=== PATIENT | male | born 1995 | race Caucasian/White ===

== ENCOUNTER 2018-01-30 19:54 | Emergency (ER) | payer BC ==
[2018-01-30 20:05] VITALS: BP 145/84; PULSE 128; RESP 18; TEMP 101.5
[2018-01-30] MEDS ORDERED: IBUPROFEN 600 MG TAB PO STA (20:23)
[2018-01-30] MEDS ORDERED: ACETAMINOPHEN TAB 500 MG TAB PO STA (20:23)
--- NOTE | 2018-01-30 20:25 | ED ---
General Adult HPI - General Chief complaint: Upper Respiratory Infection Stated complaint: poss bronchitis/poss flu Time Seen by Provider: 01/30/18 20:13 Source: patient, RN notes reviewed Mode of arrival: ambulatory Limitations: no limitations - History of Present Illness Initial comments: 22-year-old male presents to the emergency Department chief complaint of fever. He states he had fevers throat pain and body aches. His roommate was diagnosed with influenza B. He denies any productive cough. He denies any nausea or vomiting. He took Tylenol this morning. His ears due to his continued symptoms so he thought that he should be seen. Patient denies any recent shortness of breath, chest pain, back pain, abdominal pain, nausea vomiting, numbness or tingling, dysuria or hematuria, constipation or diarrhea, headaches or visual changes, or any other current symptoms. - Related Data Previous Rx's Medication Instructions Recorded Oseltamivir [Tamiflu] 75 mg PO Q12HR #10 cap 01/30/18 Allergies Allergy/AdvReac Type Severity Reaction Status Date / Time No Known Allergies Allergy Verified 01/30/18 20:03 Review of Systems ROS Statement: Those systems with pertinent positive or pertinent negative responses have been documented in the HPI. ROS Other: All systems not noted in ROS Statement are negative. Past Medical History Past Medical History: No Reported History Additional Past Medical History / Comment(s): spontaneous pneumo in right lung History of Any Multi-Drug Resistant Organisms: None Reported Past Surgical History: No Surgical Hx Reported Past Psychological History: No Psychological Hx Reported Smoking Status: Current every day smoker Past Alcohol Use History: Occasional Past Drug Use History: Marijuana General Exam - General Exam Comments Initial Comments: General exam: Alert, active, comfortable in no apparent distress Head: Normocephalic Eyes: Normal reaction of pupils, equal size, normal range of extraocular motion Ears: normal external ear canals, pink tympanic membranes with normal cone of light Nose: clear with pink turbinates Throat: Erythema Neck: no masses, no nuchal rigidity Chest: no chest wall deformity Lungs: equal air entry with no crackles or wheeze CVS: S1 and S2 normal with no audible mumurs, regular rhythm Abdomen: no hepatosplenomegaly, normal bowel sounds, no guarding or rigidity Spine: no scoliosis or deformity Skin: no rashes Neurological: No focal deficits, tone is normal in all 4 extremities Limitations: no limitations Course Vital Signs 01/30/18 20:00 Temperature 101.5 F H Pulse Rate 128 H Respiratory 18 Rate Blood Pressure 145/84 O2 Sat by Pulse 99 Oximetry Medical Decision Making - Medical Decision Making 22-year-old male presents to the emergency department with a chief complaint of fever and sore throat. At this time patient is influenza B-positive. We will start him on Tamiflu. We discussed follow-up return parameters all questions. Patient stated that he understood and he is in agreement this plan. All questions have been answered. He'll be discharged. - Lab Data Lab Results 01/30/18 01/30/18 Range/Units 20:07 20:25 Influenza Type A RNA Not Detected (Not Detectd) Influenza Type B (PCR) Detected H (Not Detectd) Group A Strep Rapid Negative (Negative) - Radiology Data Radiology results: report reviewed, image reviewed Disposition Clinical Impression: Influenza B Disposition: HOME SELF-CARE Condition: Stable Instructions: Influenza in Children (ED) Additional Instructions: Please use medication as discussed. Please follow up with family doctor if symptoms have not improved over the next two days. Please return to the emergency room if your symptoms increase or worsen or for any other concerns. Prescriptions: Oseltamivir [Tamiflu] 75 mg PO Q12HR #10 cap Referrals: Matias Bustos MD [REFERRING] - 1-2 days Time of Disposition: 20:43
== END 2018-01-30 20:51 | disposition home or self-care (01) ==
LOC: EC 19:54
DX: J10.1 Influenza due to other identified influenza virus with other respiratory manifestations (principal); F17.200 Nicotine dependence, unspecified, uncomplicated
CPT/HCPCS: 87081; 87430; 87502; 99283

== ENCOUNTER 2018-04-15 12:47 | Emergency (ER) | payer BC ==
[2018-04-15 12:57] VITALS: BP 133/70; PULSE 103; RESP 20; TEMP 98.5
--- NOTE | 2018-04-15 13:15 | ED ---
General Adult HPI - General Chief complaint: Extremity Injury, Upper Stated complaint: facial rash/ left palm injury Time Seen by Provider: 04/15/18 12:58 Source: patient, RN notes reviewed Mode of arrival: ambulatory Limitations: no limitations - History of Present Illness Initial comments: 22-year-old male presents to the emergency department for a chief complaint of hand pain 2 hours. Patient was long boarding when he fell and scraped his left hand. Patient denies pain in the L hand other than the abrasion. Patient denies pain anywhere else. Patient denies pain in the other hand or lower extremities bilaterally. Patient denies hitting his head or losing consciousness. Patient also complains of mild impetigo that started last night. Patient states he gets this every year around this time and just needs a prescription for Bactroban. Patient denies a history of MRSA. Patient denies any fevers or chills. Patient last had a tetanus shot about 3 years ago. Patient has no other complaints at this time including shortness of breath , chest pain, abdominal pain, nausea or vomiting, headache, or visual changes. - Related Data Previous Rx's Medication Instructions Recorded Oseltamivir [Tamiflu] 75 mg PO Q12HR #10 cap 01/30/18 Bacitracin Oint 1 applic TOPICAL Q8H 5 Days gm 04/15/18 Cephalexin [Keflex] 500 mg PO Q12HR #20 cap 04/15/18 Allergies Allergy/AdvReac Type Severity Reaction Status Date / Time No Known Allergies Allergy Verified 04/15/18 12:57 Review of Systems ROS Statement: Those systems with pertinent positive or pertinent negative responses have been documented in the HPI. ROS Other: All systems not noted in ROS Statement are negative. Past Medical History Past Medical History: No Reported History Additional Past Medical History / Comment(s): spontaneous pneumo in right lung History of Any Multi-Drug Resistant Organisms: None Reported Past Surgical History: No Surgical Hx Reported Past Psychological History: No Psychological Hx Reported Smoking Status: Current every day smoker Past Alcohol Use History: Occasional Past Drug Use History: Marijuana General Exam Limitations: no limitations General appearance: alert Head exam: Present: atraumatic, normocephalic, normal inspection Respiratory exam: Present: normal lung sounds bilaterally. Absent: respiratory distress, wheezes, rales, rhonchi, stridor Cardiovascular Exam: Present: regular rate, normal rhythm, normal heart sounds. Absent: systolic murmur, diastolic murmur, rubs, gallop, clicks Extremities exam: Present: full ROM (Full range of motion of the left wrist and hand and digits.), tenderness (Tenderness to the abrasion. No tenderness in the rest of the hand. No tenderness in the scaphoid area.), normal capillary refill (Refill less than 2 seconds and radial pulse 2+ in upper extremities bilaterally), other (There is a 3 cm x 3 cm abrasion on the palmar aspect of the left hand. No signs of infection. No cellulitic changes, spreading redness , streaking redness, or drainage from the area.). Absent: pedal edema, joint swelling (No swelling or edema noted in the left hand.) Neurological exam: Present: alert, oriented X3 Psychiatric exam: Present: normal affect, normal mood Skin exam: Present: rash (patient has 2-3 mild papules noted on the chin. No spreading redness or drainage.) Course Vital Signs 04/15/18 12:54 Temperature 98.5 F Pulse Rate 103 H Respiratory 20 Rate Blood Pressure 133/70 O2 Sat by Pulse 98 Oximetry Medical Decision Making - Medical Decision Making 22-year-old male presents the emergency department for chief complaints of abrasion to the left hand 2 hours. Patient fell off his long board. Patient did not hit his head or sustain any other injuries. On exam there is a 3 cm x 3 cm abrasion to the palmar aspect of the left hand. Full range of motion in the left hand and digits. Neurovascular intact. No tenderness elsewhere in the hand. No scaphoid tenderness. Patient is concerned for a gravel in the wound. X-ray was ordered which showed no acute fractures or abnormalities. No foreign bodies identified. Exam has moderate amount of dirt in it. Wound was cleaned with iodine water and soap. Bacitracin was also applied and it was covered with a nonstick bandage. Patient was given a prescription for Keflex as he has poor outpatient follow-up without a current primary care provider. Patient also complains of impetigo which she gets every year around this time. Patient states usually gets Bactroban and it goes away. No signs of spreading infection around the area of impetigo on his chin. Patient was given Bactroban for this. Patient will return to the emergency department if he has any worsening symptoms or signs of infection which were extensively discussed with him. He will follow up with primary care in 1-2 days. He was given a referral for this. Disposition Clinical Impression: Abrasion, Impetigo Disposition: HOME SELF-CARE Condition: Good Instructions: Abrasion (ED), Impetigo (ED) Additional Instructions: Please keep the area of the hand clean and use antibiotic ointment over the abrasion. Watch for signs of infection such as spreading redness, streaking redness or drainage from the wound. Return to the emergency department if you notice any of these symptoms or fevers. Use bactroban as directed on affected area. Follow up with primary care in 1-2 days. Prescriptions: Bacitracin Oint 1 applic TOPICAL Q8H 5 Days gm Is patient prescribed a controlled substance at d/c from ED?: No Referrals: None,Stated [Primary Care Provider] - 1-2 days Ozzie Holt MD [STAFF PHYSICIAN] - 1-2 days Time of Disposition: 13:42
--- NOTE | 2018-04-15 13:32 | XR ---
Left hand HISTORY: Trauma and pain 3 views of the left hand Bone mineralization, joint spaces and alignment are maintained. IMPRESSION: No fracture or dislocation is evident, follow-up as indicated.
[2018-04-15] MEDS ORDERED: DIPH,PERTUS(ACELL)TETVAC-LF 0.5 ML VIAL IM ONE (13:42)
== END 2018-04-15 14:01 | disposition home or self-care (01) ==
LOC: EC 12:47
DX: S60.512A Abrasion of left hand, initial encounter (principal); L01.00 Impetigo, unspecified; F17.200 Nicotine dependence, unspecified, uncomplicated; Z23 Encounter for immunization; W19.XXXA Unspecified fall, initial encounter; Y93.89 Activity, other specified; Y92.009 Unspecified place in unspecified non-institutional (private) residence as the place of occurrence of the external cause
CPT/HCPCS: 90471; 90715; 99283

== ENCOUNTER 2018-06-13 19:28 | Emergency (ER) | payer BC ==
[2018-06-13 19:50] VITALS: RESP 18
--- NOTE | 2018-06-13 20:38 | ED ---
General Adult HPI - General Chief complaint: Urogenital Stated complaint: Male /Med express sent Time Seen by Provider: 06/13/18 20:25 Source: patient, RN notes reviewed Mode of arrival: ambulatory Limitations: no limitations - History of Present Illness Initial comments: Patient 23-year-old male presented to the emergency room today with a chief complaint of left testicular pain that started approximately 2 hours ago. He did go to urgent care was sent here to the emergency room for evaluation. He states feels somewhat swollen on the left side. Denies difficulty going to the bathroom. He denies any injury states he was just sitting at home when he stood up he felt a pain. Describes a sharp. Denies any other complaints or symptoms. Patient denies any recent fever, chills, shortness of breath, chest pain, back pain, numbness or tingling, dysuria or hematuria, constipation or diarrhea, headaches or visual changes, or any other complaints. - Related Data Previous Rx's Medication Instructions Recorded Oseltamivir [Tamiflu] 75 mg PO Q12HR #10 cap 01/30/18 Bacitracin Oint 1 applic TOPICAL Q8H 5 Days gm 04/15/18 Cephalexin [Keflex] 500 mg PO Q12HR #20 cap 04/15/18 Allergies Allergy/AdvReac Type Severity Reaction Status Date / Time No Known Allergies Allergy Verified 06/13/18 19:50 Review of Systems ROS Statement: Those systems with pertinent positive or pertinent negative responses have been documented in the HPI. ROS Other: All systems not noted in ROS Statement are negative. Past Medical History Past Medical History: No Reported History Additional Past Medical History / Comment(s): spontaneous pneumo in right lung, History of Any Multi-Drug Resistant Organisms: None Reported Past Surgical History: No Surgical Hx Reported Additional Past Surgical History / Comment(s): hypospadias repaired as a child Past Psychological History: No Psychological Hx Reported Smoking Status: Current every day smoker Past Alcohol Use History: None Reported Past Drug Use History: None Reported General Exam Limitations: no limitations Course Vital Signs 06/13/18 19:46 Temperature 98.7 F Pulse Rate 81 Respiratory 18 Rate Blood Pressure 126/71 O2 Sat by Pulse 100 Oximetry Medical Decision Making - Medical Decision Making Patient's ultrasound reviewed and shows no evidence for testicular torsion, epididymitis or orchitis. Normal ultrasound of the testicles. Patient's urinalysis is negative for any sign of infection. Denies any chances of STDs is states has not had sex in over a year. Cultures are pending. Options were discussed with patient about prophylactic treatment. He has declined. Patient is advised follow-up with urologist. He'll use anti-inflammatories advised return if symptoms increase worsen. - Lab Data Lab Results 06/13/18 Range/Units 20:31 Urine Color Yellow Urine Appearance Clear (Clear) Urine pH 6.5 (5.0-8.0) Ur Specific [place] 1.022 (1.001-1.035) Urine Protein Trace H (Negative) Urine Glucose (UA) Negative (Negative) Urine Ketones Negative (Negative) Urine Blood Negative (Negative) Urine Nitrite Negative (Negative) Urine Bilirubin Negative (Negative) Urine Urobilinogen 3.0 (<2.0) mg/dL Ur Leukocyte Esterase Negative (Negative) Disposition Clinical Impression: Testicular pain, left Disposition: HOME SELF-CARE Condition: Good Instructions: Testicle Pain (ED) Additional Instructions: Please use ibuprofen as discussed. Please follow-up with urologist in the next 2 days. Please return to emergency room if the symptoms increase or worsen or for any other concerns. Is patient prescribed a controlled substance at d/c from ED?: No Referrals: None,Stated [Primary Care Provider] - 1-2 days Hernando Fisher MD [STAFF PHYSICIAN] - 1-2 days Time of Disposition: 21:48
[2018-06-13 20:43] LABS: Appearance,Urine Clear (Clear); Bilirubin,Urine Negative (Negative); Blood,Urine Negative (Negative); Color,Urine Yellow; Glucose,Urine (UA) Negative (Negative); Ketones,Urine Negative (Negative); Leukocyte Esterase,Urine Negative (Negative); Nitrite,Urine Negative (Negative); PH, Urine 6.5 (5.0-8.0); Protein,Urine Trace (Negative); Specific Gravity,Urine 1.022 (1.001-1.035)
--- NOTE | 2018-06-13 21:37 | US ---
EXAMINATION TYPE: US scrotum with doppler. Grayscale and color Doppler Duplex imaging performed of t nathanael scrotum. DATE OF EXAM: 06/13/2018 COMPARISON: NONE CLINICAL HISTORY: Pain. Left side pain. EXAM MEASUREMENTS: TESTICLES: Right Testicle: 4.3 x 2.5 x 3.4 cm Left Testicle: 4.5 x 2.3 x 3.3 cm EPIDIDYMIS HEAD: Right Epididymis: .7 x .8 x .8 cm Left Epididymis: .8 x .8 x .7 cm Doppler performed to assess for testicular vascularity; good bilateral color flow and waveforms are s een. There is no evidence of testicular torsion. Presence of hydroceles: No Presence of varicoceles: No Normal color flow seen bilaterally. IMPRESSION: Normal testicular sonogram. No evidence of testicular torsion or mass.
[2018-06-13 22:05] VITALS: BP 116/63; PULSE 71; TEMP 98.1
[2018-06-15 08:27] LABS: C. trachomatis,PCR Negative (Neg,Equiv); Chlamydia trachomatis Source Urine
[2018-06-15 08:38] LABS: N. gonorrhoeae,PCR Negative (Neg,Equiv); Neisseria Source Urine
== END 2018-06-13 22:05 | disposition home or self-care (01) ==
LOC: EC 19:28
DX: N50.812 Left testicular pain (principal); F17.200 Nicotine dependence, unspecified, uncomplicated; Z98.890 Other specified postprocedural states
CPT/HCPCS: 76870; 81003; 87086; 87491; 87591; 93975; 99284